=== PATIENT | male | born 1995 | race Caucasian/White ===

== ENCOUNTER 2022-08-25 22:08 | Emergency (ER) | payer BC, OTHER ==
[~2022-08-25] VITALS: Ht 193 cm; Wt 198.2 kg
[2022-08-25 23:26] VITALS: BP 130/89
--- NOTE | 2022-08-25 23:31 | NUR ---
PT TAKEN TO BED 8
--- NOTE | 2022-08-25 23:35 | NUR ---
pt ambulated to ed 8, report given to raymundo arrington
--- NOTE | 2022-08-25 23:50 | NUR ---
Dr. Arndt examining patient.
[2022-08-26] MEDS ORDERED: ACETAMINOPHEN EXTRA STRENGTH 500 MG TAB PO ONE
[2022-08-26] MEDS ORDERED: IBUPROFEN 600 MG TAB PO ONE
--- NOTE | 2022-08-26 00:31 | NUR ---
[place] [facility] CALLED AND REPORT WAS MADE
--- NOTE | 2022-08-26 00:54 | NUR ---
[place] [facility] AT BEDSIDE
--- NOTE | 2022-08-26 01:02 | NUR ---
[facility] AT BEDSIDE INCIDENT REPORT WAS GIVEN # [id number].
[2022-08-26] MEDS ORDERED: AMOX-1230 PO (01:52)
[2022-08-26 02:00] VITALS: BP 138/78
--- NOTE | 2022-08-26 02:00 | NUR ---
Patient discharged with v/s stable. Written and verbal after care instructions given and explained. Patient verbalized understanding. Ambulatory with steady gait. All questions addressed prior to discharge. Advised to follow up with PMD.
== END 2022-08-26 02:00 | disposition home or self-care (01) ==
LOC: MED 22:08
DX: S09.90XA Unspecified injury of head, initial encounter (principal); E03.9 Hypothyroidism, unspecified; Y04.1XXA Assault by human bite, initial encounter; Y93.89 Activity, other specified; Y92.89 Other specified places as the place of occurrence of the external cause; Y99.8 Other external cause status
CPT/HCPCS: 90471; 90715; 99283